=== PATIENT | male | born 1940 | race Caucasian/White ===

== ENCOUNTER 2019-08-18 15:09 | Inpatient (IN) ==
[2019-08-18] MEDS ORDERED: 0.9 % SODIUM CHLORIDE 250 ML IV SCH ×2 (15:30→21:52)
[2019-08-18] MEDS ORDERED: 0.9 % SODIUM CHLORIDE 1,000 ML IV SCH (15:30)
[2019-08-18 15:37] LABS: POC Blood Urea Nitrogen 14 mg/dl (8-23); POC CO2 23 mmol/L (22-30); POC Calcium, Ionized 1.18 mmol/L (1.16-1.32); POC Chloride 100 mmol/L (96-108); POC Creatinine 1.1 mg/dl (0.7-1.2); POC Glucose, Random 140 mg/dL (70-105); POC Potassium 3.6 mmol/L (3.3-5.1); POC Sodium 135 mmol/L (133-145)
[2019-08-18 16:20] LABS: Basophils # (Auto) 0.03 K/mcL (0.00-0.30); Basophils % (Auto) 0.2 % (0.0-2.0); Eosinophils # (Auto) 0.08 K/mcL (0.00-0.70); Eosinophils % (Auto) 0.6 % (0.0-7.0); Granulocytes % (Auto) 78.4 % (38.0-78.0); Hematocrit 18.5 % (40.1-51.0); Hemoglobin 4.4 g/dL (13.7-17.5); Lymphocytes % (Auto) 14.5 % (15.5-49.0); Mean Cell Volume 71.2 fL (80.0-100.0); Mean Corpuscular HGB Conc 23.8 g/dL (31.0-36.0); Mean Platelet Volume 9.7 fL (7.4-10.4); Monocytes # (Auto) 0.83 K/mcL (0.10-0.90); Monocytes % (Auto) 6.3 % (1.0-12.0); Platelet Count 403 K/mcL (140-440); WBC 13.1 K/mcL (4.50-11.00)
[2019-08-18 16:39] LABS: Chloride 97 mmol/L (96-108)
[2019-08-18 16:41] LABS: ALT/SGPT < 5 U/l (0-40); AST/SGOT 11 U/l (0-37); Albumin 4.1 gm/dL (3.2-5.2); Albumin/Globulin Ratio 1.6 (1.0-2.3); Alkaline Phosphatase 113 U/L (39-117); Bilirubin,Total 0.7 mg/dL (0.0-1.0); Blood Urea Nitrogen 14 mg/dl (8-23); Carbon Dioxide 22 mmol/L (22-30); Globulin 2.5 gm/dL (2.2-3.7); Glomerular Filtration Rate 71; Glucose 146 mg/dL (70-105)
[2019-08-18] MEDS ORDERED: PANTOPRAZOLE 40 MG VIAL IV ONE (18:12)
--- NOTE | 2019-08-18 19:31 | Emergency Department Note ---
Weakness HPI - General Chief complaint: Weakness Stated complaint: recheck Time Seen by Provider: 08/18/19 15:17 Source: patient Limitations: no limitations - History of Present Illness HPI Narrative: 78-year-old male presents with some generalized weakness. [facility] ago and they ordered some routine lab work. They called him today and told him to come to the ER because his hemoglobin and hematocrit is critically low. States he feels okay today. He has no complaints. States he does get a little bit shortness of breath and dizziness at times but he is fine currently. No cough or cold symptoms. No nausea, vomiting, or diarrhea. No fever or chills. No treatments prior to arrival. He did drive himself here and walked in. - Related Data Home Medications Medication Instructions Recorded Confirmed aspirin 81 mg tablet,delayed 81 mg PO QDAY tab 04/24/15 04/28/19 release travoprost 0.004 % eye drops 1 drp OPHTHALMIC QAM ml 04/24/15 04/28/19 dorzolamide 2 % eye drops 1 drp OPHTHALMIC BID ml 04/28/19 04/28/19 Previous Rx's Medication Instructions Recorded ipratropium-albuterol 0.5 mg-3 3 ml INHALATION Q8H PRN #90 ml 11/12/18 mg(2.5 mg base)/3 mL nebulization soln albuterol sulfate 90 mcg/actuation 2 puff INHALATION Q4-6H PRN #8.5 g 04/29/19 aerosol inhaler tamsulosin 0.4 mg capsule 0.4 mg PO QDAY #90 cap 05/26/19 amlodipine 5 mg tablet 5 mg PO QDAY #90 tab 06/21/19 fluticasone furoate 100 1 inh INHALATION QDAY #30 each 06/21/19 mcg/actuation blister powder for inhalation triamterene 37.5 0.5 tab PO QDAY 90 Days #45 tab 06/24/19 mg-hydrochlorothiazide 25 mg tablet liraglutide 0.6 mg/0.1 mL (18 mg/3 See Rx Instructions .ROUTE 06/29/19 mL) subcutaneous pen injector .COMPLEX #9 milliliter lisinopril 5 mg tablet 5 mg PO QDAY 90 Days #90 tab 07/16/19 simvastatin 20 mg tablet 20 mg PO QPM 90 Days #90 tab 07/16/19 Allergies Allergy/AdvReac Type Severity Reaction Status Date / Time metformin Allergy Unknown Diarrhea Verified 08/18/19 15:14 Penicillins Allergy Unknown Hives Verified 08/18/19 15:14 Review of Systems All systems ED: reviewed and negative except as stated. 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, mild stage (Chronic) Keratoconjunctivitis sicca of both eyes not specified as Sjogren's (Chronic) History of tobacco use (Chronic) Rotator cuff sprain (Chronic) Personal history of prostate cancer (Chronic) Osteoarthritis (Chronic 09/28/13) Open-angle glaucoma (Chronic) Hypertension, essential (Chronic) Hyperlipidemia (Chronic 02/04/11) Diabetes mellitus, type II (Chronic) Chronic obstructive pulmonary disease (Chronic) BPH without obstruction/lower urinary tract symptoms (Chronic 03/21/11) Blepharitis (Chronic) Anemia, iron deficiency (Chronic 05/13/12) Past Surgical History (Last Reviewed 12/25/17 @ 15:33 by Lew Mckeon PA-C) History of trigger finger (Chronic) History of tonsillectomy (Chronic) Radioactive implant insertion precaution (Chronic) History of knee surgery (Chronic) History of colonoscopy (Chronic) History of cataract surgery (Chronic) Status post arthroscopic surgery of right knee (Chronic) Status post arthroscopic surgery of left knee (Chronic) - Social History smoking status: Former smoker Alcohol use: Reports: Unknown Drug use: Reports: none Physical Exam Limitations: no limitations General appearance: alert, other (Pale) Head: atraumatic, normocephalic, normal inspection Eye: Present: normal appearance. Absent: conjunctival injection ENT: Present: mucous membranes moist Chest: Present: symmetric chest wall rise Respiratory: Present: normal lung sounds bilaterally. Absent: respiratory distress, rales/crackles, accessory muscle use Cardiovascular: Present: regular rate, normal heart sounds Abdominal: Present: soft, normal bowel sounds. Absent: distention, tenderness, guarding Extremities: Present: normal inspection Neurological: Present: alert, oriented X3 Psychiatric: Present: normal affect, normal mood Skin: Present: warm, dry, intact. Absent: normal color (Pale) Course Course Narrative: At 1700 I did speak with surgeon on-call, Dr. Sebastian who agrees to consult on this patient and can scope him. He would like the hospitalist to admit. At 1930 I did speak with the hospitalist, Dr. Wylie who agrees to accept this patient. Vital Signs Temperature 98.8 F 08/18/19 15:09 Pulse Rate 91 H 08/18/19 15:09 Respiratory Rate 18 08/18/19 15:09 Blood Pressure 122/50 08/18/19 15:09 Pulse Oximetry (%) 100 08/18/19 15:09 Temperature 98.8 F 08/18/19 15:09 Pulse Rate 81 08/18/19 18:46 Respiratory Rate 14 08/18/19 18:46 Blood Pressure 114/51 08/18/19 18:46 Pulse Oximetry (%) 98 08/18/19 18:46 Weakness - Lab Data Lab results reviewed: Yes I reviewed the patient's lab results. Result diagrams: 08/18/19 15:32 08/18/19 15:32 Lab Results 08/18/19 08/18/19 Range/Units 15:32 15:32 WBC 13.1 H (4.50-11.00) K/mcL RBC 2.60 L (4.63-6.08) M/mcL Hgb 4.4 L* (13.7-17.5) g/dL Hct 18.5 L* (40.1-51.0) % POC Hct 17.0 L* (41.0-55.0) % MCV 71.2 L (80.0-100.0) fL MCH 16.9 L (26.0-34.0) pg MCHC 23.8 L (31.0-36.0) g/dL RDW 20.0 H (11.5-14.5) % Plt Count 403 (140-440) K/mcL MPV 9.7 (7.4-10.4) fL Gran % 78.4 H (38.0-78.0) % Lymph % (Auto) 14.5 L (15.5-49.0) % [place] % (Auto) 6.3 (1.0-12.0) % Eos % (Auto) 0.6 (0.0-7.0) % Baso % (Auto) 0.2 (0.0-2.0) % Gran # 10.25 H (1.80-8.00) K/mcL Lymph # (Auto) 1.90 (1.50-4.80) K/mcL [place] # (Auto) 0.83 (0.10-0.90) K/mcL Eos # (Auto) 0.08 (0.00-0.70) K/mcL Baso # (Auto) 0.03 (0.00-0.30) K/mcL POC Sodium 135 (133-145) mmol/L Sodium 133 (133-145) mmol/L POC Potassium 3.6 (3.3-5.1) mmol/L Potassium 3.7 (3.3-5.1) mmol/L POC Chloride 100 (96-108) mmol/L Chloride 97 (96-108) mmol/L Carbon Dioxide 22 (22-30) mmol/L POC Total CO2 23 (22-30) mmol/L Anion Gap 14.0 (8-16) POC BUN 14 (8-23) mg/dl BUN 14 (8-23) mg/dl Creatinine 1.0 (0.7-1.2) mg/dl POC Creatinine 1.1 (0.7-1.2) mg/dl GFR Calculation 71 Glucose 146 H (70-105) mg/dL POC Glucose 140 H (70-105) mg/dL Calcium 9.0 (8.6-10.4) mg/dl POC WB Ioniz Calcium 1.18 (1.16-1.32) mmol/L Total Bilirubin 0.7 (0.0-1.0) mg/dL AST 11 (0-37) U/l ALT < 5 (0-40) U/l Alkaline Phosphatase 113 (39-117) U/L Total Protein 6.6 (5.9-8.4) gm/dL Albumin 4.1 (3.2-5.2) gm/dL Globulin 2.5 (2.2-3.7) gm/dL Albumin/Globulin Ratio 1.6 (1.0-2.3) Disposition Pt seen by CIRCUIT [facility]/PA only: Yes Clinical Impression: Anemia, GI bleed Disposition: Xfer As Outpt/Obs ([facility]) Condition: Fair Referrals: Syed Landeros PA-C [Primary Care Provider] -
--- NOTE | 2019-08-18 20:07 | Internal Med History&Physical ---
Medical - H&P: HPI Patient information: Note initiated : 08/18/19 at 8:05 pm Service Date, if different from initiated Date: [] Patient: Yasmin Keller 78 y/o M admitted on for recheck. Chief Complaint: [] History of present illness: This is a 78-year-old gentleman with a history of COPD, prostate cancer status post radioactive seed implantation, multiple degenerative arthritis was referred to home by the outpatient clinic because of low hemoglobin. Patient scheduled to have a regular annual examination next week and underwent the blood test couple days ago and his hemoglobin came back 4.7. His primary care physician called him and he was not answering the phone and send the EMS to bring the patient to the ER. Patient was brought to the ER and his vital signs within normal limits he is oxygenating well patient was having progressive shortness of breath and fatigue for the last few months. Patient denied any melena but he reported having sticky stool hard to flush out. No previous history of GI bleed he underwent guaiac test which was positive in the ER. No evidence of active bleeding. His BUN within normal limits his creatinine within normal limits. - Constitutional Constitutional: Present: fatigue, lethargy, weakness. Absent: anorexia, chills, daytime sleepiness, excessive sweating, fever(s), frequent falls, increased appetite, night sweats, weight gain, weight loss - EENT Eyes: Absent: blind spots, blurry vision, change in vision, decreased night vision, diplopia, loss of peripheral vision, loss of vision, pain, photophobia Ears: Absent: decreased hearing, ear discharge, ear pain Nose, mouth and throat: Absent: abnormal hearing, bleeding gums, change in voice - Cardiovascular Cardiovascular: Present: dyspnea on exertion. Absent: chest pain at rest, chest pain with activity, claudication, diaphoresis, edema - Respiratory Respiratory: Present: dyspnea on exertion. Absent: wheezing, snoring, pain on inspirtation, chest congestion - Gastrointestinal Gastrointestinal: Absent: diarrhea, dyspepsia, dysphagia, heartburn, hematemesis, hematochezia, loose stools, melena, nausea, odynophagia, tenesmus - Genitourinary Genitourinary: Absent: difficulty urinating, difficulty with ejaculations, dysuria, urinary frequency, urinary hesitancy - Neurological Neurological: Absent: burning sensations, confusion, convulsions, dizziness, focal weakness - Psychiatric Psychiatric: Absent: behavioral changes, change in appetite, difficulty concentrating, hallucinations, homicidal ideation - Endocrine Endocrine: Present: fatigue. Absent: flushing, polydipsia, polyphagia, polyuria - Hematologic/Lymphatic Hematologic/Lymphatic: Absent: easy bleeding, easy bruising, lymphadenopathy - Allergic/Immunologic Allergic/Immunologic: Absent: throat swelling, itchy eyes, seasonal rhinorrhea Medical - H&P: PMH Medical history: Medical History (Last Reviewed 12/25/17 @ 15:33 by Lew Mckeon PA-C) Presence of intraocular lens (Chronic) Type 2 diabetes mellitus without complications (Chronic) Blepharitis of right upper eyelid (Chronic) Primary open-angle glaucoma, mild stage (Chronic) Keratoconjunctivitis sicca of both eyes not specified as Sjogren's (Chronic) History of tobacco use (Chronic) Rotator cuff sprain (Chronic) Personal history of prostate cancer (Chronic) Osteoarthritis (Chronic 09/28/13) Open-angle glaucoma (Chronic) Hypertension, essential (Chronic) Hyperlipidemia (Chronic 02/04/11) Diabetes mellitus, type II (Chronic) Chronic obstructive pulmonary disease (Chronic) BPH without obstruction/lower urinary tract symptoms (Chronic 03/21/11) Blepharitis (Chronic) Anemia, iron deficiency (Chronic 05/13/12) Surgical history: Past Surgical History (Last Reviewed 12/25/17 @ 15:33 by Lew Mckeon PA-C) History of trigger finger (Chronic) History of tonsillectomy (Chronic) Radioactive implant insertion precaution (Chronic) History of knee surgery (Chronic) History of colonoscopy (Chronic) History of cataract surgery (Chronic) Status post arthroscopic surgery of right knee (Chronic) Status post arthroscopic surgery of left knee (Chronic) Social history: Former smoker No active alcoholism No drug abuse Functional capacity: independent ambulation Smoking status: Former smoker Drug use: none Alcohol use: none Medical - H&P: Meds Home Medications Medication Instructions Recorded Confirmed Type aspirin 81 mg tablet,delayed 81 mg PO QDAY tab 04/24/15 08/18/19 History release travoprost 0.004 % eye drops 1 drp OPHTHALMIC QAM ml 04/24/15 08/18/19 History ipratropium-albuterol 0.5 mg-3 3 ml INHALATION Q8H PRN #90 ml 11/12/18 08/18/19 Rx mg(2.5 mg base)/3 mL nebulization soln dorzolamide 2 % eye drops 1 drp OPHTHALMIC BID ml 04/28/19 08/18/19 History albuterol sulfate 90 mcg/actuation 2 puff INHALATION Q4-6H PRN #8.5 g 04/29/19 08/18/19 Rx aerosol inhaler tamsulosin 0.4 mg capsule 0.4 mg PO QDAY #90 cap 05/26/19 08/18/19 Rx amlodipine 5 mg tablet 5 mg PO QDAY #90 tab 06/21/19 08/18/19 Rx fluticasone furoate 100 1 inh INHALATION QDAY #30 each 06/21/19 08/18/19 Rx mcg/actuation blister powder for inhalation triamterene 37.5 0.5 tab PO QDAY 90 Days #45 tab 06/24/19 08/18/19 Rx mg-hydrochlorothiazide 25 mg tablet liraglutide 0.6 mg/0.1 mL (18 mg/3 See Rx Instructions .ROUTE 06/29/19 08/18/19 Rx mL) subcutaneous pen injector .COMPLEX #9 milliliter lisinopril 5 mg tablet 5 mg PO QDAY 90 Days #90 tab 07/16/19 08/18/19 Rx simvastatin 20 mg tablet 20 mg PO QPM 90 Days #90 tab 07/16/19 08/18/19 Rx Allergies Allergy/AdvReac Type Severity Reaction Status Date / Time metformin Allergy Unknown Diarrhea Verified 08/18/19 15:14 Penicillins Allergy Unknown Hives Verified 08/18/19 15:14 Medical - H&P: Exam - Constitutional Vitals: Temp Pulse Resp BP Pulse Ox 98.8 F 81 14 114/51 98 08/18/19 15:09 08/18/19 18:46 08/18/19 18:46 08/18/19 18:46 08/18/19 18:46 General appearance: cooperative, no acute distress - Head Head exam: Present: atraumatic, normal inspection, normocephalic - Expanded Head Exam Head exam: Absent: abrasion, Key's sign, contusion, hematoma, laceration - Eye Eye exam: Absent: conjunctival injection, periorbital swelling, periorbital tenderness, scleral icterus - ENT ENT exam: Present: mucous membranes moist, normal external ear exam, normal oropharynx. Absent: mucous membranes dry, normal exam - Expanded ENT Exam Ear exam: Absent: auricular hematoma, auricular trauma, external canal tenderness Mouth exam: Present: moist. Absent: drooling, dry mucosa, laceration, muffled voice - Neck Neck exam: Present: full ROM, normal inspection. Absent: lymphadenopathy, meningismus - Expanded Neck Exam Neck exam: Absent: anterior neck swelling, carotid bruit, midline deformity, thyroid mass, tracheal deviation - Respiratory Respiratory exam: Present: decreased breath sounds, wheezes. Absent: respiratory distress - Cardiovascular Cardiovascular exam: Present: normal rate and rhythm, systolic murmur. Absent: bradycardia - GI/Abdominal GI/Abdominal exam: Present: normal bowel sounds, soft. Absent: distended, mass, pulsatile mass, rebound, rigid, tenderness - Expanded GI/Abdominal Exam GI/Abdominal exam: Absent: ascites - Expanded Lower Extremities Exam Hip exam: Absent: abrasion, crepitus, deformity - Back Exam Back exam: Present: full ROM, normal inspection. Absent: CVA tenderness (L), CVA tenderness (R), muscle spasm - Neurological Exam Neurological exam: Present: alert, CN II-XII intact, normal gait, oriented X3, reflexes normal. Absent: motor sensory deficit - Psychiatric Psychiatric exam: Present: normal affect, normal mood. Absent: agitated, anxious Medical - H&P: Reslt - Labs CBC & Chem 7: 08/18/19 15:32 08/18/19 15:32 Labs: Short CBC 08/18/19 Range/Units 15:32 WBC 13.1 H (4.50-11.00) K/mcL Hgb 4.4 L* (13.7-17.5) g/dL Hct 18.5 L* (40.1-51.0) % Plt Count 403 (140-440) K/mcL BMP 08/18/19 15:32 Sodium 133 Potassium 3.7 Chloride 97 Carbon Dioxide 22 BUN 14 Creatinine 1.0 Glucose 146 H Calcium 9.0 Liver Function 08/18/19 Range/Units 15:32 Total Bilirubin 0.7 (0.0-1.0) mg/dL AST 11 (0-37) U/l ALT < 5 (0-40) U/l Alkaline Phosphatase 113 (39-117) U/L Albumin 4.1 (3.2-5.2) gm/dL Medical - H&P: A/P - Narrative A/P Narrative: Subacute blood loss anemia Hemoglobin 4.7 on annual examination and previous hemoglobin was 12 Patient was complaining of fatigue and tiredness for the last 3 months Stool guaiac test was positive Patient noticed sticky stool but no dark DIScoloration No previous history of GI bleed, previous colonoscopy unremarkable according to the patient Plan ER physician discussed with gastroenterology and recommended admitting here and evaluating Discussed with the on-call surgeon Dr. Sebastian who agreed to do EGD and colonoscopy and hospital service consulted for admission Patient was started on blood transfusion will continue 4 units Hemoglobin monitoring every 6 hourly We will start the patient on Protonix 80 twice daily No history of liver disease No history of coagulopathy, ordered INR and PTT History of COPD Oxygenating well no evidence of acute exacerbation Continue home inhalers Type 2 diabetes Monitor blood glucose and restart home medication as needed Sliding scale insulin History of prostatic cancer status post radioactive seed implantation Patient followed up with urology and last evaluation was a month ago and no active symptoms DVT prophylaxis-SCDs and no heparin products due to obvious reasons CODE STATUS-full code, verified with the patient CPT code 99282 Expected length of stay-at least 2 midnights
[2019-08-18] MEDS ORDERED: PEG 3350/NA SULF,BICARB,CL/KCL 4,000 ML ORAL.SOL PO ONE ×2 (20:10→21:52)
[2019-08-18] MEDS ORDERED: ACETAMINOPHEN 325 MG TABLET PO PRN (20:11)
[2019-08-18] MEDS ORDERED: SENNOSIDES 1 TABLET PO PRN (20:11)
[2019-08-18] MEDS ORDERED: ONDANSETRON 4 MG/2 ML VIAL IV PRN (20:11)
[2019-08-18] MEDS ORDERED: IPRATROPIUM/ALBUTEROL 3 ML AMPUL.NEB NEB PRN (20:11)
[2019-08-18] MEDS ORDERED: LACTULOSE 20 GM/30 ML ORAL.SOL PO PRN (20:11)
[2019-08-18] MEDS ORDERED: IOPAMIDOL 100 ML BOTTLE IV ONE (22:09)
[2019-08-18] MEDS: 0.9 % SODIUM CHLORIDE 1,000 ML IV SCH (22:45)
[2019-08-18] MEDS: DOCUSATE SODIUM 100 MG CAPSULE PO SCH (22:46)
[2019-08-18] MEDS: 0.9 % SODIUM CHLORIDE 10 ML SYRINGE IV SCH (22:47)
[2019-08-18] MEDS ORDERED: DEXTROSE 31 GM ORAL.SUSP PO PRN (22:48)
[2019-08-18] MEDS ORDERED: DEXTROSE 50% 50 ML VIAL IV PRN (22:48)
[2019-08-18 23:57] LABS: Prothrombin Time 13.2 sec (11.9-14.5)
[2019-08-18] MEDS: 0.9 % SODIUM CHLORIDE 250 ML IV SCH (23:57)
[2019-08-19 00:01] LABS: ALT/SGPT 6 U/l (0-40); AST/SGOT 12 U/l (0-37); Albumin 3.7 gm/dL (3.2-5.2); Albumin/Globulin Ratio 1.6 (1.0-2.3); Alkaline Phosphatase 105 U/L (39-117); Bilirubin,Total 3.7 mg/dL (0.0-1.0); Blood Urea Nitrogen 12 mg/dl (8-23); Calcium 8.6 mg/dl (8.6-10.4); Carbon Dioxide 23 mmol/L (22-30); Chloride 96 mmol/L (96-108); Globulin 2.3 gm/dL (2.2-3.7); Glomerular Filtration Rate 81; Glucose 94 mg/dL (70-105)
[2019-08-19 06:19] LABS: Hematocrit 21.5 % (40.1-51.0); Mean Cell Volume 73.4 fL (80.0-100.0); Mean Corpuscular HGB Conc 27.9 g/dL (31.0-36.0); Mean Platelet Volume 9.5 fL (7.4-10.4); Platelet Count 324 K/mcL (140-440); RBC 2.93 M/mcL (4.63-6.08); Red Cell Distribution Width 20.3 % (11.5-14.5)
[2019-08-19 06:59] LABS: Anisocytosis 2+ (NONE SEEN); Basophils % (Manual) 1 % (0-2); Eosinophils % (Manual) 1 % (0-7); Lymphocytes % 11 % (15-49); Microcytosis 1+ (NONE SEEN); Monocytes % (Manual) 5 % (1-12); Nucleated Red Blood Cells 1 % (0-0); Platelet Estimate NORMAL (NORMAL); Polychromasia 1+ (NONE SEEN); RBC Fragments RARE (NONE SEEN); RBC Morphology ABNORM (NORMAL); Segmented Neutrophils % 82 % (38-78)
[2019-08-19] MEDS ORDERED: PANTOPRAZOLE 40 MG VIAL IV SCH (07:30)
--- NOTE | 2019-08-19 07:59 | XRay Report ---
HISTORY: Preop FINDINGS: The lungs are clear. The heart, mediastinum, julio and pleura are normal. There has been no significant change since 01/28/13. There is a small linear metallic foreign body overlying the right heart border. This may be a radiation seed used for prostate cancer which has migrated into the lung. This was present in 2012. IMPRESSION: Normal chest. Interpreted and Authenticated by: Jose Alejandro Sainz 08/19/19
[2019-08-19] MEDS: PANTOPRAZOLE 40 MG VIAL IV SCH ×2 (08:00→17:43)
[2019-08-19] MEDS: DOCUSATE SODIUM 100 MG CAPSULE PO SCH ×2 (08:00→20:00)
[2019-08-19] MEDS: 0.9 % SODIUM CHLORIDE 10 ML SYRINGE IV SCH ×3 (08:01→20:00)
--- NOTE | 2019-08-19 08:21 | Cat Scan Report ---
History: Severe anemia, prior history of prostate cancer, evaluate for colon lesion TECHNIQUE: Patient was imaged following oral and intravenous contrast scanning during the portal venous phase and delayed excretory phase. Sagittal and coronal reformats were created. Radiation exposure was limited using dose reduction technology. FINDINGS: Patient has emphysema in both lung bases. This has become worse since 2007. There is a 4 mm nodule in the anterior basal segment left lower lobe. This was present on the prior CT and represents an incidental granuloma. The liver and spleen are normal in size and homogeneous. There are multiple small layering stones in the neck of the gallbladder. Gallbladder oakes not thickened or inflamed. The bile ducts are nondilated. There is a low-attenuation nonenhancing lesion along the posterior side of the mid body of the pancreas. It measures 1.2 x 1.5 cm. This was not seen on the prior chest CT. Has a density of 16 Hounsfield units both during the arterial and delayed excretory phase. This appears to be a cystic lesion the remainder the pancreas is normal without evidence of inflammation or dilatation of the duct. The adrenals are normal. There are several round low-attenuation lesions in the kidneys. The largest is 1.2 cm and is located in the upper pole of the right kidney. These do not enhance with contrast and are most likely cysts. No suspicious masses seen in either kidney. There is no kidney stone or hydronephrosis. Densely calcified plaques are present along the wall normal caliber abdominal aorta. Which measures 2 cm in transverse dimension. Patient has an elongated colon filled with stool. In the distal transverse colon there is a short segment of bowel which either has thickened and collapsed mucosal fold or there is a mass in this region. This is seen on axial image #64 and coronal image 34. Measures approximately 2.8 cm and length and 2.3 cm in thickness. There is no inflammation or infiltration of surrounding fat and no obstruction proximal to this. The cecum is mobile and flipped superiorly towards the liver. The adjacent terminal ileum is abnormal. There is a long segment of ileum which has abnormally thickened oakes measuring up to 8 mm. The oral contrast reaches the ileocecal valve. This segment of abnormal small bowel is roughly 15 cm in length. This is most apparent on the coronal image #27. Urinary bladder is distended. There are numerous radiation implant seeds in the prostate. Prostate is mildly enlarged and protrudes into the base of the bladder. No discrete tumor is seen in or adjacent to the prostate. Seminal vesicles are small. There is a 7 x 9 mm sclerotic intramedullary structure medially in the right iliac bone near the SI joint. This is probably a bone island. There is no other evidence to suggest bone metastasis. There is arthritis and disc degeneration throughout the lumbar spine and lower thoracic spine. Mild arthritis is also present in both hips. Incidentally noted is a small fat-containing umbilical hernia. IMPRESSION: Abnormally thickened wall of the distal ileum. This could be due to inflammatory bowel disease. However, inflammatory bowel disease does not normally present in a 78-year-old unless there has been a prior history of the disease. Ischemic bowel is also a consideration although I do not see obvious vascular occlusion to this segment of the intestine. Mass versus normal collapsed mucosal folds in the distal transverse colon. This could be further evaluated by colonoscopy. Cystic lesion in the body of the pancreas. This should be correlated with the patient's pancreatic enzyme levels this could be a benign cyst or cystic neoplasm. Cholelithiasis Emphysema Interpreted and Authenticated by: Jose Alejandro Sainz 08/19/19
[2019-08-19] MEDS: INSULIN LISPRO 1 UNIT/0.01 ML UNIT SQ SCH ×4 (08:24→19:53)
[2019-08-19] MEDS ORDERED: 0.9 % SODIUM CHLORIDE 250 ML IV SCH (10:00)
[2019-08-19] MEDS: 0.9 % SODIUM CHLORIDE 250 ML IV SCH (11:01)
[2019-08-19] MEDS: 0.9 % SODIUM CHLORIDE 1,000 ML IV SCH (12:03)
--- NOTE | 2019-08-19 12:06 | General Surgery Consult Note ---
History of Present Illness Patient information: Note initiated : 08/19/19 at 12:04 pm Service Date, if different from initiated Date: [] Patient: Yasmin Keller 78 y/o M admitted on 08/18/19 for recheck. Chief Complaint: [] Reason for consult: other (severe anemia) History of present illness: 78-year-old male admitted for evaluation of severe anemia. He had labs drawn in his outpatient office and his hemogram revealed His hemoglobin to be 4.2. He does not give a history of recent episodes of melena or rectal bleeding. However, review of his chart reveals that he had 2 episodes of ER visits in the past year with complaint of rectal bleeding. He was referred for colonoscopy but never had it performed at the time that he was bleeding. His last colonoscopy was 5 years ago. He denies abdominal pain, nausea, vomiting. He has had episodes of episodic diarrhea which he treated with cephalexin administered Imodium. He was previously on prednisone, but states that he's been off this for some time. He also had some hemoglobin checks. His hemoglobin was 14 in August 2017 and 12.8 in August 2018. He appears to be hemodynamically stable at this time. Patient is admitted and will be transfused. Plan is for upper and lower endoscopy on August 30. Review of Systems - Constitutional fatigue, malaise, weakness - EENT Nose, mouth and throat: abnormal hearing, dizziness - Cardiovascular dyspnea on exertion, lightheadedness - Gastrointestinal diarrhea, hematochezia - Genitourinary urinary hesitancy, urinary incontinence, urinary urgency - Musculoskeletal abnormal gait, arthralgias, back pain, myalgias - Integumentary no non-healing lesions, no pruritus, no rash - Neurological dizziness, no confusion, no headache(s), no syncope - Psychiatric anxiety, confusion, depression - Endocrine fatigue - Hematologic/Lymphatic no easy bleeding, no easy bruising, no lymphadenopathy - Allergic/Immunologic no tongue swelling, no throat swelling, no uticaria, no wheezing, no lip swelling Past History Past medical history: Diabetes mellitus. History prostate cancer. Chronic obstructive lung disease. BPH. Chronic anemia. Polyarthritis Past surgical history: Bilateral knee arthroscopy Past family history: Alzheimer's dementia Past social history: Former smoker. Denies alcohol use. Denies drug use Medications and Allergies Home Medications Medication Instructions Recorded Confirmed Type aspirin 81 mg tablet,delayed 81 mg PO QDAY tab 04/24/15 08/19/19 History release travoprost 0.004 % eye drops 1 drp OPHTHALMIC HS ml 04/24/15 08/19/19 History dorzolamide 2 % eye drops 1 drp OPHTHALMIC BID ml 04/28/19 08/19/19 History albuterol sulfate 90 mcg/actuation 2 puff INHALATION Q4-6H PRN #8.5 g 04/29/19 08/19/19 Rx aerosol inhaler tamsulosin 0.4 mg capsule 0.4 mg PO QDAY #90 cap 05/26/19 08/19/19 Rx amlodipine 5 mg tablet 5 mg PO QDAY #90 tab 06/21/19 08/19/19 Rx fluticasone furoate 100 1 inh INHALATION QDAY #30 each 06/21/19 08/19/19 Rx mcg/actuation blister powder for inhalation triamterene 37.5 0.5 tab PO QDAY 90 Days #45 tab 06/24/19 08/19/19 Rx mg-hydrochlorothiazide 25 mg tablet liraglutide 0.6 mg/0.1 mL (18 mg/3 See Rx Instructions .ROUTE 06/29/19 08/19/19 Rx mL) subcutaneous pen injector .COMPLEX #9 milliliter simvastatin 20 mg tablet 20 mg PO QPM 90 Days #90 tab 07/16/19 08/19/19 Rx Acetaminophen [Tylenol Extra 500 mg PO QAM 08/19/19 08/19/19 History Strength] Lisinopril [Zestril] 5 mg PO HS 08/19/19 08/19/19 History Allergies Allergy/AdvReac Type Severity Reaction Status Date / Time Penicillins Allergy Intermediate Hives Verified 08/19/19 13:21 metformin AdvReac Mild Diarrhea Verified 08/19/19 13:21 Exam Temp Pulse Resp BP Pulse Ox 98.1 F 76 17 118/95 98 08/19/19 10:36 08/19/19 10:36 08/19/19 10:36 08/19/19 10:36 08/19/19 10:36 - General physical appearance well developed, well nourished, no distress, no pain, chronically ill - Eyes PERRL, normal ocular movement - ENT normal pinna, normal nares, normal mucosa, no congestion, decreased hearing - Head Head exam IM: Present: atraumatic, normal inspection, normocephalic - Neck no masses, no bruits, trachea midline, no lymphadenopathy, no venous distension - Cardiovascular Cardiovascular exam IM: Present: normal rate and rhythm, +S1, +S2. Absent: JVD, tachycardia - Respiratory normal expansion, normal respiratory effort, other (decreased breath sounds bilaterally) - Abdomen Abdomen: Present: soft, non tender, bowel sounds. Absent: masses, distended Hernia: Present: none - Genitourinary Present: normal penis with no external lesions - Rectum Rectum: Present: no hemorrhoids, no tenderness, no masses, other (, stool guaiac positive) - Integumentary Present: no rash, no growths, no abnormal pigmentation - Neurologic Present: normal coordination, normal sensation - Musculoskeletal Present: normal gait, normal posture - Psychiatric Present: oriented to time, oriented to person, oriented to place, speech is normal, memory intact Results - Labs 08/19/19 04:00 08/18/19 22:35 Abnormal lab results 08/18/19 08/18/19 08/18/19 Range/Units 15:32 15:32 22:35 WBC 13.1 H (4.50-11.00) K/mcL RBC 2.60 L (4.63-6.08) M/mcL Hgb 4.4 L* (13.7-17.5) g/dL Hct 18.5 L* (40.1-51.0) % POC Hct 17.0 L* (41.0-55.0) % MCV 71.2 L (80.0-100.0) fL MCH 16.9 L (26.0-34.0) pg MCHC 23.8 L (31.0-36.0) g/dL RDW 20.0 H (11.5-14.5) % Gran % 78.4 H (38.0-78.0) % Lymph % (Auto) 14.5 L (15.5-49.0) % Gran # 10.25 H (1.80-8.00) K/mcL Seg Neutrophils % (38-78) % Lymphocytes % (15-49) % Nucleated RBCs (0-0) % RBC Morphology (NORMAL) Polychromasia (NONE SEEN) Anisocytosis (NONE SEEN) Microcytosis (NONE SEEN) RBC Fragments (NONE SEEN) Sodium 131 L (133-145) mmol/L Glucose 146 H (70-105) mg/dL POC Glucose 140 H (70-105) mg/dL Total Bilirubin 3.7 H (0.0-1.0) mg/dL 08/19/19 Range/Units 04:00 WBC 12.0 H (4.50-11.00) K/mcL RBC 2.93 L (4.63-6.08) M/mcL Hgb 6.0 L* (13.7-17.5) g/dL Hct 21.5 L (40.1-51.0) % POC Hct (41.0-55.0) % MCV 73.4 L (80.0-100.0) fL MCH 20.5 L (26.0-34.0) pg MCHC 27.9 L (31.0-36.0) g/dL RDW 20.3 H (11.5-14.5) % Gran % (38.0-78.0) % Lymph % (Auto) (15.5-49.0) % Gran # (1.80-8.00) K/mcL Seg Neutrophils % 82 H (38-78) % Lymphocytes % 11 L (15-49) % Nucleated RBCs 1 H (0-0) % RBC Morphology Abnorm A (NORMAL) Polychromasia 1+ A (NONE SEEN) Anisocytosis 2+ A (NONE SEEN) Microcytosis 1+ A (NONE SEEN) RBC Fragments Rare A (NONE SEEN) Sodium (133-145) mmol/L Glucose (70-105) mg/dL POC Glucose (70-105) mg/dL Total Bilirubin (0.0-1.0) mg/dL Diabetes panel 08/18/19 08/18/19 Range/Units 15:32 22:35 Sodium 133 131 L (133-145) mmol/L Potassium 3.7 3.5 (3.3-5.1) mmol/L Chloride 97 96 (96-108) mmol/L Carbon Dioxide 22 23 (22-30) mmol/L BUN 14 12 (8-23) mg/dl Creatinine 1.0 0.9 (0.7-1.2) mg/dl Glucose 146 H 94 (70-105) mg/dL Calcium 9.0 8.6 (8.6-10.4) mg/dl AST 11 12 (0-37) U/l ALT < 5 6 (0-40) U/l Alkaline Phosphatase 113 105 (39-117) U/L Total Protein 6.6 6.0 (5.9-8.4) gm/dL Albumin 4.1 3.7 (3.2-5.2) gm/dL Calcium panel 08/18/19 08/18/19 Range/Units 15:32 22:35 Calcium 9.0 8.6 (8.6-10.4) mg/dl Albumin 4.1 3.7 (3.2-5.2) gm/dL Pituitary panel 08/18/19 08/18/19 Range/Units 15:32 22:35 Sodium 133 131 L (133-145) mmol/L Potassium 3.7 3.5 (3.3-5.1) mmol/L Chloride 97 96 (96-108) mmol/L Carbon Dioxide 22 23 (22-30) mmol/L BUN 14 12 (8-23) mg/dl Creatinine 1.0 0.9 (0.7-1.2) mg/dl Glucose 146 H 94 (70-105) mg/dL Calcium 9.0 8.6 (8.6-10.4) mg/dl Adrenal panel 08/18/19 08/18/19 Range/Units 15:32 22:35 Sodium 133 131 L (133-145) mmol/L Potassium 3.7 3.5 (3.3-5.1) mmol/L Chloride 97 96 (96-108) mmol/L Carbon Dioxide 22 23 (22-30) mmol/L BUN 14 12 (8-23) mg/dl Creatinine 1.0 0.9 (0.7-1.2) mg/dl Glucose 146 H 94 (70-105) mg/dL Calcium 9.0 8.6 (8.6-10.4) mg/dl Total Bilirubin 0.7 3.7 H (0.0-1.0) mg/dL AST 11 12 (0-37) U/l ALT < 5 6 (0-40) U/l Alkaline Phosphatase 113 105 (39-117) U/L Total Protein 6.6 6.0 (5.9-8.4) gm/dL Albumin 4.1 3.7 (3.2-5.2) gm/dL All other labs normal. Assessment and Plan (1) Chronic blood loss anemia Patient will be transfused to hemoglobin of at least 9. He will have bowel prep and will be scheduled for upper and lower endoscopy. CT of the abdomen and pelvis with oral and IV contrast will be done to look for possible colonic lesions Status: Acute (2) Type 2 diabetes mellitus without complications To be covered with insulin as needed while undergoing bowel prep Status: Chronic Qualifiers: Diabetes mellitus terminal system operator insulin use: without terminal system operator use Qualified Code(s): E11.9 - Type 2 diabetes mellitus without complications (3) Osteoarthritis Status: Chronic Comment: Improved on the Celebrex. Qualifiers: Osteoarthritis location: multiple joints Osteoarthritis type: unspecified Qualified Code(s): M15.9 - Polyosteoarthritis, unspecified (4) Hypertension, essential Status: Chronic (5) Chronic obstructive pulmonary disease Resume home inhalers and add nebulizers as needed Status: Chronic Qualifiers: COPD type: unspecified COPD Qualified Code(s): J44.9 - Chronic obstructive pulmonary disease, unspecified
[2019-08-19 17:26] LABS: Mean Cell Volume 77.8 fL (80.0-100.0); Mean Corpuscular HGB Conc 30.3 g/dL (31.0-36.0); Mean Platelet Volume 9.2 fL (7.4-10.4); Platelet Count 297 K/mcL (140-440); RBC 4.24 M/mcL (4.63-6.08); Red Cell Distribution Width 21.2 % (11.5-14.5); WBC 10.8 K/mcL (4.50-11.00)
[2019-08-19 18:45] LABS: Anisocytosis 1+ (NONE SEEN); Hypochromasia 1+ (NONE SEEN); Lymphocytes % 18 % (15-49); Macrocytosis 1+ (NONE SEEN); Monocytes % (Manual) 5 % (1-12); Nucleated Red Blood Cells 1 % (0-0); Platelet Estimate NORMAL (NORMAL); RBC Morphology ABNORM (NORMAL); Segmented Neutrophils % 77 % (38-78)
[2019-08-19 22:05] LABS: Hematocrit 32.2 % (40.1-51.0); Hemoglobin 9.9 g/dL (13.7-17.5); Mean Cell Volume 77.6 fL (80.0-100.0); Mean Corpuscular HGB Conc 30.7 g/dL (31.0-36.0); Mean Platelet Volume 9.5 fL (7.4-10.4); Platelet Count 306 K/mcL (140-440); RBC 4.15 M/mcL (4.63-6.08); Red Cell Distribution Width 21.4 % (11.5-14.5)
[2019-08-19 22:32] LABS: ALT/SGPT 6 U/l (0-40); AST/SGOT 12 U/l (0-37); Albumin 3.6 gm/dL (3.2-5.2); Albumin/Globulin Ratio 1.5 (1.0-2.3); Alkaline Phosphatase 113 U/L (39-117); Bilirubin,Total 3.8 mg/dL (0.0-1.0); Blood Urea Nitrogen 8 mg/dl (8-23); Calcium 8.7 mg/dl (8.6-10.4); Carbon Dioxide 23 mmol/L (22-30); Chloride 101 mmol/L (96-108); Globulin 2.4 gm/dL (2.2-3.7); Glomerular Filtration Rate 85; Glucose 75 mg/dL (70-105)
--- NOTE | 2019-08-19 23:15 | Internal Med Progress Note ---
Medical - PN: Subj Patient information: Note initiated : 08/19/19 at 11:13 pm Service Date, if different from initiated Date: [] Patient: Yasmin Keller 78 y/o M admitted on 08/18/19 for recheck. Chief Complaint: [] Interval history: 78-year-old gentleman with a history of COPD, prostate cancer status post radioactive seed implantation, multiple degenerative arthritis was referred to home by the outpatient clinic because of low hemoglobin. Patient scheduled to have a regular annual examination next week and underwent the blood test couple days ago and his hemoglobin came back 4.7. His primary care physician called him and he was not answering the phone and send the EMS to bring the patient to the ER. Patient was brought to the ER and his vital signs within normal limits he is oxygenating well patient was having progressive shortness of breath and fatigue for the last few months. Patient denied any melena but he reported having sticky stool hard to flush out. No previous history of GI bleed he underwent guaiac test which was positive in the ER. No evidence of active bleeding. His BUN within normal limits his creatinine within normal limits. 08/19 His hemoglobin improved after 2 units of transfusion ordered another 2 units We will recheck hemoglobin No evidence of active bleeding Evaluated by on-call surgeon and started the bowel prep and planning for EGD and colonoscopy tomorrow Has CT of the abdomen showing evidence of mildly narrowed and mildly thick- walled appearance of the transverse colon with his anemia this could be concerning and undergoing colonoscopy and would recommend outpatient gastroenterology follow-up Pertinent ROS: General-no distress Respiratory-no shortness of breath no cough Cardiovascular-no chest pain no palpitation no syncope Abdomen-no abdominal pain no diarrhea no melena Neuro-no focal neuro deficit, no seizure no syncope - Constitutional Vitals: Vital Signs Temp Pulse Resp BP Pulse Ox 99.3 F H 74 20 141/74 96 08/19/19 19:15 08/19/19 19:15 08/19/19 19:15 08/19/19 19:15 08/19/19 19:15 Period Temp Pulse Resp BP Sys/Lamb Pulse Ox Last 24 Hr 97.9 F-99.3 F 70-88 16-20 105-141/39-95 94-98 Intake and Output 08/19/19 08/19/19 08/20/19 13:59 21:59 05:59 Intake Total 0 370 Output Total 250 1 Balance 1790 369 Weight 166 lb 6.4 oz 168 lb 1.6 oz Patient Weight 08/20/19 05:59 Weight 168 lb 1.6 oz Intake & Output: Intake & Output 08/19/19 08/19/19 08/20/19 13:59 21:59 05:59 Intake Total 2040 370 Output Total 250 1 Balance 1790 369 Weight 166 lb 6.4 oz 168 lb 1.6 oz Intake: IV 1000 70 Sodium Chloride 0.9% 1,000 ml @ 1000 75 mls/hr IV .[id number] [facility] Rx#: [id number] Sodium Chloride 0.9% 250 ml @ 70 20 mls/hr IV .[id number] [facility] Rx#: [id number] Oral 440 Blood Product 600 300 Output: Void Amount 250 Stool 1 Other: Meal Breakfast Percent of Meal Consumed 100% Feeding Ability Independent Urine Appearance Clear Clear Urine Color Pale Pale Urine Odor Normal Normal Stool Size Copious Copious Stool Color Brown Brown Stool Consistency Liquid Liquid # Voids 1 1 # Bowel Movements 1 1 - Head Head exam: Present: atraumatic, normal inspection, normocephalic - Eye Eye exam: Present: normal appearance. Absent: nystagmus, periorbital swelling, periorbital tenderness - ENT ENT exam: Present: normal external ear exam, normal oropharynx. Absent: normal exam - Neck Neck exam: Present: normal inspection. Absent: lymphadenopathy, meningismus - Respiratory Respiratory exam: Present: normal respiratory exam. Absent: accessory muscle use, chest wall tenderness - Cardiovascular Cardiovascular exam: Present: normal rate and rhythm. Absent: bradycardia, clicks, JVD - GI/Abdominal GI/Abdominal exam: Present: normal bowel sounds, soft, distended - Neurological Exam Neurological exam: Present: alert, oriented X3, reflexes normal. Absent: abnormal gait, motor sensory deficit - Skin Skin exam: Present: normal color. Absent: cyanosis, erythema Medical - PN: Obj Da - Labs CBC & Chem 7: 08/19/19 19:53 08/19/19 19:53 Labs: Abnormal Lab Results 08/19/19 08/19/19 08/19/19 19:53 19:53 16:38 WBC RBC 4.15 L 4.24 L Hgb 9.9 L 10.0 L Hct 32.2 L 33.0 L POC Hct MCV 77.6 L 77.8 L MCH 23.9 L 23.6 L MCHC 30.7 L 30.3 L RDW 21.4 H 21.2 H Gran % Lymph % (Auto) Gran # Seg Neutrophils % Lymphocytes % Nucleated RBCs 1 H RBC Morphology Abnorm A Polychromasia Hypochromasia 1+ A Anisocytosis 1+ A Microcytosis Macrocytosis 1+ A RBC Fragments Sodium Glucose POC Glucose Total Bilirubin 3.8 H 08/19/19 08/18/19 08/18/19 04:00 22:35 15:32 WBC 12.0 H RBC 2.93 L Hgb 6.0 L* Hct 21.5 L POC Hct 17.0 L* MCV 73.4 L MCH 20.5 L MCHC 27.9 L RDW 20.3 H Gran % Lymph % (Auto) Gran # Seg Neutrophils % 82 H Lymphocytes % 11 L Nucleated RBCs 1 H RBC Morphology Abnorm A Polychromasia 1+ A Hypochromasia Anisocytosis 2+ A Microcytosis 1+ A Macrocytosis RBC Fragments Rare A Sodium 131 L Glucose 146 H POC Glucose 140 H Total Bilirubin 3.7 H 08/18/19 15:32 WBC 13.1 H RBC 2.60 L Hgb 4.4 L* Hct 18.5 L* POC Hct MCV 71.2 L MCH 16.9 L MCHC 23.8 L RDW 20.0 H Gran % 78.4 H Lymph % (Auto) 14.5 L Gran # 10.25 H Seg Neutrophils % Lymphocytes % Nucleated RBCs RBC Morphology Polychromasia Hypochromasia Anisocytosis Microcytosis Macrocytosis RBC Fragments Sodium Glucose POC Glucose Total Bilirubin Meds: Medications Acetaminophen (Tylenol) 650 mg PO Q6HP PRN; Protocol PRN Reason: Per Pain Protocol/Fever > 101 Last Admin: 08/19/19 11:00 Dose: 650 mg Documented by: Albuterol/Ipratropium (Duoneb) 3 ml NEB Q6HRT PRN PRN Reason: Shortness Of Breath Dextrose (Dextrose 50%) 0 ml IV UD PRN PRN Reason: Hypoglycemia Diagnostic Test (Pha) (Accu-Chek) 1 each FS ACHS [facility] Last Admin: 08/19/19 19:53 Dose: 1 each Documented by: Docusate Sodium (Colace) 100 mg PO BID [facility] Last Admin: 08/19/19 20:00 Dose: 100 mg Documented by: Glucose (Insta-Glucose) 15 gm PO PRN PRN PRN Reason: Hypoglycemia Sodium Chloride (Sodium Chloride 0.9%) 1,000 mls @ 75 mls/hr IV .[id number] [facility] Last Admin: 08/19/19 12:03 Dose: 75 mls/hr Documented by: Insulin Human Lispro (Humalog) 0 unit SQ ACHS [facility]; Protocol Last Admin: 08/19/19 19:53 Dose: Not Given Documented by: Lactulose (Cephulac) 10 gm PO DAILYP PRN PRN Reason: Constipation Ondansetron HCl (Zofran) 4 mg IV Q4HP PRN; Protocol PRN Reason: Nausea And Vomiting Pantoprazole Sodium (Protonix) 40 mg IV BIDAC [facility] Last Admin: 08/19/19 17:43 Dose: 40 mg Documented by: Senna (Senokot) 2 tab PO HSP PRN PRN Reason: Constipation Sodium Chloride (Saline Flush) 10 ml IV Q8 [facility] Last Admin: 08/19/19 20:00 Dose: 10 ml Documented by: Medical - PN: A/P - Time Spent With Patient Total time spent is greater than 50% in coordination of care (as documented) at patient's floor/unit and/or counseling patient: - Narrative A/P Narrative: Subacute blood loss anemia Hemoglobin 4.7 on annual examination and previous hemoglobin was 12 Patient was complaining of fatigue and tiredness for the last 3 months Stool guaiac test was positive Patient noticed sticky stool but no dark DIScoloration No previous history of GI bleed, previous colonoscopy unremarkable according to the patient Plan ER physician discussed with gastroenterology and recommended admitting here and evaluating Dr. Sebastian saw the patient and ordered a CT of the abdomen CT scan shows suspicious areas in the transverse colon and recommended colonoscopy Patient was started on blood transfusion will continue 4 units Recheck hemoglobin around 10 Continue Protonix 80 twice daily No history of liver disease No history of coagulopathy, PT PTT unremarkable History of COPD Oxygenating well no evidence of acute exacerbation Continue home inhalers Type 2 diabetes Monitor blood glucose and restart home medication as needed Sliding scale insulin History of prostatic cancer status post radioactive seed implantation Patient followed up with urology and last evaluation was a month ago and no active symptoms DVT prophylaxis-SCDs and no heparin products due to obvious reasons CODE STATUS-full code, verified with the patient Medical - PN: Qual - VTE Deep Vein Thrombosis/Pulmonary Embolism Present on Admission: No
[2019-08-20] MEDS: 0.9 % SODIUM CHLORIDE 1,000 ML IV SCH (02:35)
[2019-08-20 02:39] LABS: Anisocytosis 2+ (NONE SEEN); Band Neutrophils % 2 % (0-10); Basophils % (Manual) 2 % (0-2); Lymphocytes % 14 % (15-49); Monocytes % (Manual) 7 % (1-12); Nucleated Red Blood Cells 1 % (0-0); Platelet Estimate NORMAL (NORMAL); Polychromasia 1+ (NONE SEEN); RBC Fragments FEW (NONE SEEN); RBC Morphology ABNORM (NORMAL); Segmented Neutrophils % 75 % (38-78)
[2019-08-20] MEDS: 0.9 % SODIUM CHLORIDE 10 ML SYRINGE IV SCH (04:25)
[2019-08-20 07:09] LABS: Hematocrit 30.1 % (40.1-51.0); Hemoglobin 9.1 g/dL (13.7-17.5); Mean Cell Volume 79.4 fL (80.0-100.0); Mean Corpuscular HGB Conc 30.2 g/dL (31.0-36.0); Mean Platelet Volume 9.2 fL (7.4-10.4); Platelet Count 268 K/mcL (140-440); RBC 3.79 M/mcL (4.63-6.08); Red Cell Distribution Width 21.8 % (11.5-14.5); WBC 11.3 K/mcL (4.50-11.00)
[2019-08-20] MEDS: DOCUSATE SODIUM 100 MG CAPSULE PO SCH (07:18)
[2019-08-20] MEDS: INSULIN LISPRO 1 UNIT/0.01 ML UNIT SQ SCH (08:05)
[2019-08-20] MEDS: PANTOPRAZOLE 40 MG VIAL IV SCH (08:08)
[2019-08-20] MEDS ORDERED: fentaNYL 100 MCG/2 ML VIAL IV ONE (10:20)
[2019-08-20] MEDS ORDERED: PROPOFOL 200 MG/20 ML VIAL IV ONE (10:20)
[2019-08-20 10:24] LABS: Anisocytosis 1+ (NONE SEEN); Band Neutrophils % 2 % (0-10); Basophils % (Manual) 1 % (0-2); Hypochromasia 2+ (NONE SEEN); Lymphocytes % 14 % (15-49); Monocytes % (Manual) 6 % (1-12); Nucleated Red Blood Cells 1 % (0-0); Ovalocytes FEW (NONE SEEN); Platelet Estimate NORMAL (NORMAL); Poikilocytosis FEW (NONE SEEN); Polychromasia 2+ (NONE SEEN); RBC Morphology ABNORM (NORMAL); Segmented Neutrophils % 77 % (38-78)
--- NOTE | 2019-08-20 11:12 | Brief Operative Note ---
Date of procedure: 08/20/19 Pre-op diagnosis: G I BLEEDING;SEVERE ANEMIA Post-op diagnosis: other (GI BLEEDING ;SEVERE ANEMIA; ANTRAL GASTRITIS) Procedure: EGD WITH BIOPSIES FOR JENI TEST COLONOSCOPY TO CECUM Grafts/Implants: No Anesthesia: none (GENERAL) Findings: NL EGD EXCEPT FOR MILD ANTRAL GASTRITIS NORMAL COLONOSCOPY TO CECUM; NO EVIDENCE OF DIVERTICULOSIS Complications: none Surgeon: Karl Sebastian Specimens Removed/Pathology: other (JENI TEST) Condition: stable Disposition: PACU
[2019-08-20] MEDS ORDERED: ACETAMINOPHEN 325 MG TABLET PO PRN (11:23)
[2019-08-20] MEDS ORDERED: ONDANSETRON 4 MG/2 ML VIAL IV PRN (11:23)
[2019-08-20] MEDS ORDERED: SENNOSIDES 1 TABLET PO PRN (11:23)
[2019-08-20] MEDS ORDERED: DEXTROSE 31 GM ORAL.SUSP PO PRN (11:23)
[2019-08-20] MEDS ORDERED: LACTULOSE 20 GM/30 ML ORAL.SOL PO PRN (11:23)
[2019-08-20] MEDS ORDERED: IPRATROPIUM/ALBUTEROL 3 ML AMPUL.NEB NEB PRN (11:23)
[2019-08-20] MEDS ORDERED: DEXTROSE 50% 50 ML VIAL IV PRN (11:23)
[2019-08-20] MEDS ORDERED: INSULIN LISPRO 1 UNIT/0.01 ML UNIT SQ SCH (11:30)
--- NOTE | 2019-08-20 12:51 | Discharge Summary ---
Medical - DS: Prov Patient information: Note initiated : 08/20/19 at 12:49 pm Service Date, if different from initiated Date: [] Patient: Yasmin Keller 78 y/o M admitted on 08/18/19 for recheck. Chief Complaint: [] Date of admission: 08/18/19 21:51 Discharge date: 08/20/19 Primary care physician: Syed Landeros Consults: 08/18/19 Consult to Physician [CONS] Stat Comment: Consulting Provider: Mónica Wylie Reason For Exam: Physician to Consult Consult to Physician [CONS] Stat Comment: Consulting Provider: Karl Sebastian Reason For Exam: Physician to Consult Medical - DS: Meds - Discharge Medications Prescriptions: Pantoprazole [Protonix] 40 mg PO BIDAC #60 tab [facility] Medications: Home Medications aspirin 81 mg tablet,delayed release 81 mg PO QDAY tab 04/24/15 [History Confirmed 08/19/19 Last Taken 08/18/19] travoprost 0.004 % eye drops 1 drp OPHTHALMIC HS ml 04/24/15 [History Confirmed 08/19/19 Last Taken 08/17/19] dorzolamide 2 % eye drops 1 drp OPHTHALMIC BID ml 04/28/19 [History Confirmed 08/19/19 Last Taken 08/18/19] albuterol sulfate 90 mcg/actuation aerosol inhaler 2 puff INHALATION Q4-6H PRN #8.5 g 04/29/19 [Rx Confirmed 08/19/19 Last Taken 08/18/19] tamsulosin 0.4 mg capsule 0.4 mg PO QDAY #90 cap 05/26/19 [Rx Confirmed 08/19/19 Last Taken 08/18/19] amlodipine 5 mg tablet 5 mg PO QDAY #90 tab 06/21/19 [Rx Confirmed 08/19/19 Last Taken 08/18/19] fluticasone furoate 100 mcg/actuation blister powder for inhalation 1 inh INHALATION QDAY #30 each 06/21/19 [Rx Confirmed 08/19/19 Last Taken 08/18/19] triamterene 37.5 mg-hydrochlorothiazide 25 mg tablet 0.5 tab PO QDAY 90 Days #45 tab 06/24/19 [Rx Confirmed 08/19/19 Last Taken 08/18/19] liraglutide 0.6 mg/0.1 mL (18 mg/3 mL) subcutaneous pen injector See Rx Instructions .ROUTE .COMPLEX #9 milliliter 06/29/19 [Rx Confirmed 08/19/19 Last Taken 08/17/19] simvastatin 20 mg tablet 20 mg PO QPM 90 Days #90 tab 07/16/19 [Rx Confirmed 08/19/19 Last Taken 08/17/19] Acetaminophen [Tylenol Extra Strength] 500 mg PO QAM 08/19/19 [History Confirmed 08/19/19 Last Taken 08/18/19] Lisinopril [Zestril] 5 mg PO HS 08/19/19 [History Confirmed 08/19/19 Last Taken 08/17/19] Medical - DS: Hosp Hospital Course: 78-year-old gentleman with a history of COPD, prostate cancer status post radioactive seed implantation, multiple degenerative arthritis was referred to home by the outpatient clinic because of low hemoglobin. Patient scheduled to have a regular annual examination next week and underwent the blood test couple days ago and his hemoglobin came back 4.7. His primary care physician called him and he was not answering the phone and send the EMS to bring the patient to the ER. Patient was brought to the ER and his vital signs within normal limits he is oxygenating well patient was having progressive shortness of breath and fatigue for the last few months. Patient denied any melena but he reported having sticky stool hard to flush out. No previous history of GI bleed he underwent guaiac test which was positive in the ER. No evidence of active bleeding. His BUN within normal limits his creatinine within normal limits. 08/19 His hemoglobin improved after 2 units of transfusion ordered another 2 units We will recheck hemoglobin No evidence of active bleeding Evaluated by on-call surgeon and started the bowel prep and planning for EGD and colonoscopy tomorrow Has CT of the abdomen showing evidence of mildly narrowed and mildly thick- walled appearance of the transverse colon with his anemia this could be concerning and undergoing colonoscopy and would recommend outpatient gastroenterology follow-up 08/20 He underwent EGD and colonoscopy and discussed with Dr. Romulo Peck EGD EXCEPT FOR MILD ANTRAL GASTRITIS NORMAL COLONOSCOPY TO CECUM; NO EVIDENCE OF DIVERTICULOSIS He recommended outpatient follow-up for capsule endoscopy and outpatient gastroenterology follow-up His hemoglobin is more than 9 Subacute blood loss anemia Probable GI bleed Hemoglobin 4.7 on annual examination and previous hemoglobin was 12 Patient was complaining of fatigue and tiredness for the last 3 months Stool guaiac test was positive Patient noticed sticky stool but no dark DIScoloration No previous history of GI bleed, previous colonoscopy unremarkable according to the patient Plan ER physician discussed with gastroenterology and recommended admitting here and evaluating Dr. Sebastian saw the patient and ordered a CT of the abdomen CT scan shows suspicious areas in the transverse colon and recommended colonoscopy Patient was started on blood transfusion will continue 5 units Recheck hemoglobin around 9-10 Continue Protonix 80 twice daily No history of liver disease No history of coagulopathy, PT PTT unremarkable He underwent EGD and colonoscopy today and according to Dr. Sebastian L EGD EXCEPT FOR MILD ANTRAL GASTRITIS NORMAL COLONOSCOPY TO CECUM; NO EVIDENCE OF DIVERTICULOSIS Dr. Sebastian recommended capsule endoscopy and outpatient follow-up to gastroenterology Patient prescribed Protonix 40 twice daily Patient was taking aspirin 81 mg which we held History of COPD Oxygenating well no evidence of acute exacerbation Continue home inhalers Type 2 diabetes Monitor blood glucose and restart home medication as needed Sliding scale insulin History of prostatic cancer status post radioactive seed implantation Patient followed up with urology and last evaluation was a month ago and no active symptoms Discharge diagnosis: Blood loss anemia, probable GI bleed - Time Spent with Patient Total time spent providing and/or coordinating discharge services: Greater than 30 minutes Medical - DS: Exam - Constitutional Vitals: Vital Signs Temp Pulse Pulse Pulse Resp BP BP 08/20/19 11:48 98.4 F 20 139/53 08/20/19 07:44 99.5 F H 20 142/65 08/20/19 06:00 98.5 F 68 21 140/59 08/20/19 04:00 98.4 F 64 20 137/68 08/20/19 02:38 98.9 F 67 20 147/60 08/19/19 23:00 98.2 F 66 18 142/63 08/19/19 19:15 99.3 F H 74 20 141/74 08/19/19 17:38 98.0 F 71 18 114/71 08/19/19 17:15 66 18 08/19/19 15:43 98.0 F 70 17 119/81 08/19/19 14:00 97.9 F 78 17 137/62 Pulse Ox 08/20/19 11:48 96 08/20/19 07:44 93 08/20/19 06:00 92 08/20/19 04:00 93 08/20/19 02:38 94 08/19/19 23:00 97 08/19/19 19:15 96 08/19/19 17:38 95 08/19/19 17:15 08/19/19 15:43 98 08/19/19 14:00 98 Intake and Output 08/19/19 08/20/19 08/20/19 21:59 05:59 13:59 Intake Total 370 1000 Output Total 1 Balance 369 1000 Intake: IV 70 1000 Sodium Chloride 0.9% 1,000 ml @ 1000 75 mls/hr IV .[id number] [facility]BERT Rx#: [id number] Sodium Chloride 0.9% 250 ml @ 70 20 mls/hr IV .[id number] ALBERT Rx#: [id number] Blood Product 300 Output: Stool 1 Other: Urine Appearance Clear Urine Color Pale Urine Odor Normal Stool Size Copious Stool Color Brown Stool Consistency Liquid Liquid # Voids 1 # Bowel Movements 1 1 Weight 168 lb 1.6 oz General appearance: cooperative, no acute distress - Head Head exam: Present: atraumatic, normal inspection, normocephalic - Eye Eye exam: Present: normal appearance. Absent: conjunctival injection, nystagmus, periorbital swelling, periorbital tenderness - ENT ENT exam: Present: mucous membranes moist, normal exam, normal external ear exam, normal oropharynx - Neck Neck exam: Present: normal inspection. Absent: lymphadenopathy, meningismus - Respiratory Respiratory exam: Present: normal respiratory exam. Absent: accessory muscle use, chest wall tenderness, respiratory distress, rhonchi, stridor, wheezes - Cardiovascular Cardiovascular exam: Present: normal rate and rhythm, systolic murmur. Absent: bradycardia, diastolic murmur - GI/Abdominal GI/Abdominal exam: Present: normal bowel sounds, soft, distended - Neurological Exam Neurological exam: Present: alert, oriented X3, reflexes normal. Absent: altered, motor sensory deficit Medical - DS: Data Labs on day of discharge: Labs from last 24 hours 08/20/19 08/20/19 08/19/19 12:00 05:00 19:53 WBC Pending 11.3 H RBC Pending 3.79 L Hgb Pending 9.1 L Hct Pending 30.1 L MCV Pending 79.4 L MCH Pending 24.0 L MCHC Pending 30.2 L RDW Pending 21.8 H Plt Count Pending 268 MPV Pending 9.2 Total Counted Pending 100 Seg Neutrophils % 77 Band Neutrophils % Not Reportable 2 Lymphocytes % 14 L Monocytes % (Manual) 6 Basophils % (Manual) 1 Nucleated RBCs 1 H Platelet Estimate Pending Normal RBC Morphology Pending Abnorm A Polychromasia 2+ A Hypochromasia 2+ A Poikilocytosis Few A Anisocytosis 1+ A Macrocytosis Ovalocytes Few A RBC Fragments Sodium 137 Potassium 3.6 Chloride 101 Carbon Dioxide 23 Anion Gap 13.0 BUN 8 Creatinine 0.8 GFR Calculation 85 Glucose 75 Calcium 8.7 Total Bilirubin 3.8 H AST 12 ALT 6 Alkaline Phosphatase 113 Total Protein 6.0 Albumin 3.6 Globulin 2.4 Albumin/Globulin Ratio 1.5 08/19/19 08/19/19 19:53 16:38 WBC 11.0 10.8 RBC 4.15 L 4.24 L Hgb 9.9 L 10.0 L Hct 32.2 L 33.0 L MCV 77.6 L 77.8 L MCH 23.9 L 23.6 L MCHC 30.7 L 30.3 L RDW 21.4 H 21.2 H Plt Count 306 297 MPV 9.5 9.2 Total Counted 100 100 Seg Neutrophils % 75 77 Band Neutrophils % 2 Not Reportable Lymphocytes % 14 L 18 Monocytes % (Manual) 7 5 Basophils % (Manual) 2 Nucleated RBCs 1 H 1 H Platelet Estimate Normal Normal RBC Morphology Abnorm A Abnorm A Polychromasia 1+ A Hypochromasia 1+ A Poikilocytosis Anisocytosis 2+ A 1+ A Macrocytosis 1+ A Ovalocytes RBC Fragments Few A Sodium Potassium Chloride Carbon Dioxide Anion Gap BUN Creatinine GFR Calculation Glucose Calcium Total Bilirubin AST ALT Alkaline Phosphatase Total Protein Albumin Globulin Albumin/Globulin Ratio Medical - DS: A/P - Patient/Caregiver Discharge Instructions Activity: increase activity as tolerated Diet: Regular Diet Additional Instructions: Needs to follow-up with a utility gelatin maker and needs to have a capsule endoscopy to evaluate small INTESTINE - Follow up Plan Follow up with: Syed Landeros PA-C [Primary Care Provider] - 08/26/19 8:30 am Karl Sebastian MD [Physician] - 09/06/19 10:00 am Disposition: Home, Self-Care Care Plan Goals: This discharge packet is provided to you to help keep you informed about your care. We want to ensure you get everything you need when you go home. You will also be receiving a call from us in a few days to follow up with you and see how you are doing since your discharge. This gives us a chance to listen to any concerns you maybe experiencing since you were discharged or any additional needs you may have, as well as providing us feedback on your care experience. We strive to always provide excellent care and thank you for your feedback and for choosing [facility]. Plan of Treatment: Outpatient capsule endoscopy Prognosis: Fair Rehab Potential: Fair I certify that the patient requires SNF services: No Overall status at discharge: patient is back to baseline Medical - DS: Qual - VTE Deep Vein Thrombosis/Pulmonary Embolism Present on Admission: No
[2019-08-20 13:09] LABS: Hematocrit 31.6 % (40.1-51.0); Hemoglobin 9.6 g/dL (13.7-17.5); Mean Cell Volume 79.6 fL (80.0-100.0); Mean Corpuscular HGB Conc 30.4 g/dL (31.0-36.0); Mean Platelet Volume 9.2 fL (7.4-10.4); Platelet Count 260 K/mcL (140-440); RBC 3.97 M/mcL (4.63-6.08); WBC 12.8 K/mcL (4.50-11.00)
[2019-08-20] MEDS ORDERED: 0.9 % SODIUM CHLORIDE 10 ML SYRINGE IV SCH (14:00)
[2019-08-20 14:35] LABS: Anisocytosis 1+ (NONE SEEN); Hypochromasia 1+ (NONE SEEN); Lymphocytes % 13 % (15-49); Monocytes % (Manual) 12 % (1-12); Ovalocytes FEW (NONE SEEN); Platelet Estimate NORMAL (NORMAL); Poikilocytosis FEW (NONE SEEN); Polychromasia 2+ (NONE SEEN); RBC Morphology ABNORM (NORMAL); Segmented Neutrophils % 75 % (38-78)
[2019-08-20] MEDS ORDERED: PANTOPRAZOLE 40 MG TABLET PO SCH (17:00)
[2019-08-20] MEDS ORDERED: DOCUSATE SODIUM 100 MG CAPSULE PO SCH (21:00)
--- NOTE | 2019-09-01 08:02 | Operative Note ---
DATE OF OPERATION: 08/20/2019 PREOPERATIVE DIAGNOSIS: GI bleeding and severe anemia. POSTOPERATIVE DIAGNOSIS: GI bleeding, severe anemia, antral gastritis. PROCEDURE: Esophagogastroduodenoscopy with biopsies for CLOtest and colonoscopy to cecum. SURGEON: Karl Sebastian MD FINDINGS: 1. Normal upper endoscopy except for mild antral gastritis. 2. Normal colon to cecum. No evidence of vascular lesion and no evidence of mass or diverticulosis. DESCRIPTION OF PROCEDURE: Under general anesthesia, the patient was turned to the left lateral decubitus position. A time-out procedure was carried out as per protocol. Bite block was placed. The scope was introduced through the bite block into the retropharynx and into the esophagus. The esophagus was normal throughout its length. The esophagogastric junction was normal. The gastric fundus and body showed normal mucosa. There was mild superficial inflammation of the prepyloric antrum. Pylorus was normal and opened appropriately. There was no evidence of channel ulcer. The rest of the duodenal bulb was unremarkable. Second and third portions of the duodenum were normal. The scope was pulled back. No abnormality was seen. Biopsies of the antrum were taken for CLOtest. Retroflexed view was done and no pathology was noted. Air was suctioned from the stomach and the scope was removed. The patient tolerated the procedure well. After completion of the upper endoscopy, the patient was repositioned. Digital examination of the anus and rectum was carried out and was unremarkable. Scope was introduced and maneuvered to the cecum. The cecum was normal. It was identified by the appendix, confluence of the taenia, and the ileocecal valve. The cecum and ascending colon were normal. Transverse colon revealed no abnormality. There were no vascular lesions or polyps. Descending and sigmoid colon were normal. There was no diverticulosis noted. Rectum was normal. Retroflexed view in the rectum did not reveal any abnormality. The patient tolerated the procedure well. He was awakened and transferred to a bed and taken to the day surgery recovery area. LCS:aleksandra Job ID: [id number] Doc ID: [id number] Karl Sebastian M.D.
== END 2019-08-20 14:30 | disposition home or self-care (01) | DRG 811 ==
LOC: ED 15:09 → ICU 21:51
PROVIDERS: ADMIT Internal Medicine; ATTEND Family Medicine Adult Medicine